=== PATIENT | female | born 1980 | race Caucasian/White ===

== ENCOUNTER 2017-05-29 20:52 | Emergency (ER) | payer OTHER ==
[~2017-05-29] VITALS: Ht 162.6 cm; Wt 54.4 kg
[~2017-05-29 20:52] MED LIST: BACTRIM DS TABL1 TA1 PO; DAKIN'S MODIF1000 ML EXT; LORTAB 7.51 TAB PO; NO MEDICATIONS
== END 2017-05-30 00:12 | disposition home or self-care (01) ==
LOC: CED 20:52
DX: L02.413 Cutaneous abscess of right upper limb (principal); Z98.890 Other specified postprocedural states; F17.200 Nicotine dependence, unspecified, uncomplicated; Z79.899 Other long term (current) drug therapy
CPT/HCPCS: 10060; 99283